=== PATIENT | male | born 1970 | race Caucasian/White ===

== ENCOUNTER 2018-07-15 16:46 | Emergency (ER) | payer MEDICAID ==
[~2018-07-15] VITALS: Ht 167.6 cm; Wt 75.4 kg
[2018-07-15 17:48] VITALS: Ht 167.6 cm; Wt 75.4 kg
[2018-07-15] MEDS ORDERED: TETRACAINE 0.5% 4 ML OPH LEFT EYE SCH (20:30)
[2018-07-15] MEDS ORDERED: FLUORESCEIN STRIP LEFT EYE ONE (20:30)
[2018-07-15] MEDS ORDERED: ERYT1OIN6 OP (22:21)
[2018-07-15] MEDS ORDERED: IBUP-1542 PO (22:22)
[2018-07-15 22:48] VITALS: BP 139/96; PULSE 73; RESP 18
--- NOTE | 2018-07-16 00:33 | ERD ---
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 Patient thinks that he may have metal flew into his eye. Patient states that about 10 years ago this has occurred in which she had a rupture, patient states he had a surgery to repair with a lens. Patient denies any contact use. Admits to tearing of the left eye ROS All systems reviewed and are negative except as per history of present illness. Medications Home Meds Active Scripts Ibuprofen* (Motrin*) 600 Mg Tab, 600 MG PO Q6H PRN for PAIN AND OR ELEVATED TEMP, #30 TAB Prov:ANTONIO MCKEON PA-C 07/15/18 Erythromycin Base (Erythromycin) 1 Gm Oint...g., 1 GM OP QID for 7 Days Prov:ANTONIO MCKEON PA-C 07/15/18 Allergies Allergies: Coded Allergies: No Known Allergy (Unverified , 07/15/18) PMhx/Soc Medical and Surgical Hx: pt denies Medical Hx, pt denies Surgical Hx Hx Alcohol Use: Yes (socially) Hx Substance Use: No Hx Tobacco Use: Yes Smoking Status: Current every day smoker Physical Exam Vitals Vital Signs Date Temp Pulse Resp B/P (MAP) Pulse Ox O2 O2 Flow FiO2 Time Delivery Rate 07/15/18 98.4 73 18 139/96 96 Room Air 22:48 (110) 07/15/18 97.6 84 20 162/106 99 17:48 (124) Physical Exam General: WD/WN, in no apparent distress, non-toxic appearing HENT: NC/AT EYES: Conjunctiva is erythematous with tearing, no visible FB noted, left eye has a orbital swelling, fluorescent staining did not show any uptake Extraocular muscles intact, pupils equal and reactive to light with consensual response Negative Veronika test NECK: Supple; no LAD PULM: Normal labored breathing CV: RRR Good capillary refill GI: Non-distended, no guarding BACK: No masses EXT: No clubbing, cyanosis, or edema NEURO: Moves on all fours SKIN: intact PSYCH: Normal mood Results 24 hrs Current Medications Medications Dose Sig/Galileo Start Time Status Last (Trade) Ordered Route PRN Stop Time Admin Dose Reason Admin Tetracaine 1 drop NOW LEFT 07/15/18 DC HCl EYE 20:30 (Tetracaine 07/15/18 22:53 0.5% Steri-Unit Carri) Fluorescein 1 strip ONCE ONCE 07/15/18 DC Sodium LEFT EYE 20:30 ([id number] 07/15/18 20:31 p) Procedures/MDM This is a 48-year-old male presenting to the ED with left eye periorbital swelling and pain status post welding earlier in the morning. On examination there was no evidence of any foreign body. CT scan did not show any evidence of metal foreign body. Low suspicion for global rupture. 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 Patient was given prescription for erythromycin ointment and ibuprofen for pain. Return precautions have been given he understands agrees this plan Departure Diagnosis: Primary Impression: Eye injury Condition: Stable Patient Instructions: Corneal Injury, Eye Protection at Work: First Aid Referrals: NO PRIMARY,CARE PHYSICIAN (PCP) [facility] Hours: Mon - Sun 9:00 AM - 5:00 PM Additional Instructions: Visite a gaspar mdever rene para un EXAMEN.Regrese a estas instalaciones si no se mejora samuel esperbamos o samuel le dijimos. [place] toda la medicina flash y samuel se le indic. Regrese a estas instalaciones si no se mejora samuel esperbamos o samuel le dijimos. ANTONIO MCKEON PA-C Jul 16, 2018 00:33
== END 2018-07-15 21:37 | disposition home or self-care (01) ==
LOC: FTE 16:46
DX: S05.92XA Unspecified injury of left eye and orbit, initial encounter (principal); F17.210 Nicotine dependence, cigarettes, uncomplicated; X58.XXXA Exposure to other specified factors, initial encounter; Y92.9 Unspecified place or not applicable
CPT/HCPCS: 70480; Z7502; Z7610